=== PATIENT | male | born 1995 | race Caucasian/White ===

== ENCOUNTER 2022-08-09 15:00 | Emergency (ER) | payer OTHER, SELFPAY ==
--- NOTE | ~2022-08-09 | CT_ITS ---
EXAMINATION: CT HEAD WITHOUT CONTRAST CLINICAL INFORMATION: Dizziness COMPARISON: None available. TECHNIQUE: Contiguous axial imaging was performed from the skull base to vertex without intravenous administration of contrast. Additional 2-D coronal and sagittal reformatted images are generated on the CT workstation and uploaded to PACS. This CT examination was performed using dose optimization techniques as appropriate, variously including the following: *Automated exposure control *Adjustment of mA and/or kV according to patient size (this includes techniques or standardized protocols for targeted exams where dose is matched to indication/reason for exam; i.e. extremities or head) *Use of iterative reconstruction technique DLP: 615 mGy-cm FINDINGS: There is no intracranial hemorrhage, hematoma, or extra-axial fluid collection. There is mild asymmetry of the lateral ventricles. There is no hydrocephalus or subependymal resorption. The go-white matter differentiation appears well preserved . No edema or mass effect. No midline shift. There is no visible acute territorial infarct or mass lesion. The calvarium appears intact. There is no pneumocephalus or orbital emphysema. There is scattered mucosal thickening ethmoid air cells. No air-fluid levels sinuses, middle ears, or mastoids. CT/CT head/brain wo IV con IMPRESSION: No acute intracranial abnormality.
--- NOTE | 2022-08-09 15:20 | ED.GENADULT ---
HPI - General Adult General Chief complaint: Dizziness <MARIA R Butcher - Last Filed: 08/09/22 15:32> Stated complaint: Lightheaded/Dizziness/Blurred vision <MARIA R Butcher - Last Filed: 08/09/22 15:32> Time Seen by Provider: 08/09/22 20:33 <MARIA R Butcher - Last Filed: 08/09/22 15:32> Source: patient <Moira Avery MD - Last Filed: 08/09/22 22:03> Mode of arrival: ambulatory <Moira Avery MD - Last Filed: 08/09/22 22:03> History of Present Illness HPI narrative: 26-year-old male who presents with intense itching for the past month and a half that he is unable to relate to any food or shampoo/colognes/lotions/laundry detergent. This is not been associated with any difficulty breathing or difficulty swallowing and he denies any associated fever, chills, skin color changes, family history of similar issues. Patient denies any unexplained weight loss and also denies any bowel or bladder issues. Patient states he went to urgent care and underwent a steroid taper which actually contributed to headaches and dizziness and states that he has had some relief the itching but otherwise no success. Patient states he has had some improvement with lotion. <Moira Avery MD - Last Filed: 08/09/22 22:03> Related Data Allergies/adverse reactions: Allergies Allergy/AdvReac Type Severity Reaction Status Date / Time cefpodoxime [From Vantin] Allergy Unknown Unknown Verified 08/09/22 15:32 shellfish Allergy Severe Anaphylaxis Uncoded 08/09/22 15:21 codine Allergy Unknown unknown Uncoded 08/09/22 15:21 <MARIA R Butcher - Last Filed: 08/09/22 15:32> Review of Systems Review of Systems: Pertinent positives and negatives as stated in HPI <Moria Avery MD - Last Filed: 08/09/22 22:03> PMFSH Past Medical History Source: nursing notes reviewed <Moira Avery MD - Last Filed: 08/09/22 22:03> Social History Social History: Social History Advance Directives: No Advance Directives Information Provided: No <MARIA R Butcher - Last Filed: 08/09/22 15:32> Physical Exam ED Vital Signs: Vital Signs - 24 hr 08/09/22 15:30 Temperature 98.0 F Pulse Rate 55 Respiratory Rate 18 Blood Pressure 118/67 Pulse Oximetry 98 Oxygen Delivery Method Room Air BMI result Body Mass Index 22.7 <MARIA R Butcher - Last Filed: 08/09/22 15:32> Vital Signs - 24 hr 08/09/22 15:30 Temperature 98.0 F Pulse Rate 55 Respiratory Rate 18 Blood Pressure 118/67 Pulse Oximetry 98 Oxygen Delivery Method Room Air BMI result Body Mass Index 22.7 VITAL SIGNS: Reviewed. GENERAL: Well developed, well nourished, in no acute distress. HEAD: Normocephalic/atraumatic EYES: PERRLA, EOMI, no scleral icterus, no conjunctival pallor EARS: Ext canals without abnormality NOSE: Nares patent bilateral OROPHARYNX: no oral lesions noted, posterior pharynx clear and non-erythematous without noted tonsillar enlargement/erythema/exudates NECK: Supple, no adenopathy LUNGS: Normal breath sounds. No adventitious sounds or accessory muscle use. SpO2<98> CARDIOVASCULAR: Regular rate and rhythm without noted murmurs ABDOMEN: Soft, non-tender, non-distended with bowel sounds. MUSCULOSKELETAL: No tenderness, deformities, or effusions noted on gross inspection. EXTREMITIES: No cyanosis, clubbing or edema. SKIN: Inspection of the skin reveals no rashes, ulcerations, jaundice, pallor, or petechiae. NEUROLOGIC: Alert and oriented x 4. Strength and sensation to light touch were grossly intact x 4. <Moira Avery MD - Last Filed: 08/09/22 22:03> Course Course Course Narrative: This is an RME: Additional HPI, ROS, PE not included below will be deferred to primary provider. this is a 26-year-old male no significant medical history presenting to the emergency department complaints of fatigue, malaise, lightheadedness, rash. Patient tells me he has had a rash for few months, was treated with steroids, now is having some lightheadedness described as disequilibrium, along with fatigue and malaise. He was advised to come in by Urgent Care. Symptoms have been worsening over the past day. Denies chest pain, shortness of breath, headache, trauma, nausea, vomiting, Abdominal pain. Physical exam benign. NIH stroke scale 0. Plan labs, imaging, urine <MARIA R Butcher - Last Filed: 08/09/22 15:32> Medical Decision Making Medical Decision Making MDM Narrative: This is a 26-year-old male with history and clinical presentation after review of all investigations idiopathic pruritis with a component of eczema. LDH/CRP/LFTs are within normal limits. I do not appreciate any eosinophilia. Patient does have an appointment with a primary care provider on 08/23. On reviewing the differential there is a pseudo neutrophilia that is secondary to low lymphocytes but otherwise no derangements. He is discharged with recommendations to revert to all non dye/perfume lotions shampoos in body washes and also to initiate daily Claritin and reduce shower temperature and frequency to 2 to 3 times a week and use copious amounts of lotion. <Moira Avery MD - Last Filed: 08/09/22 22:03> Differential Diagnosis Please see the discussion above <Moira Avery MD - Last Filed: 08/09/22 22:03> Lab Data Please see the discussion above <Moira Avery MD - Last Filed: 08/09/22 22:03> Result Diagrams: 08/09/22 16:30 08/09/22 16:30 <MARIA R Butcher - Last Filed: 08/09/22 15:32> Labs: Lab Results 08/09/22 08/09/22 08/09/22 Range/Units 16:30 16:30 16:30 WBC 6.8 (4.8-10.8) X10*3/uL RBC 5.49 (4.60-5.80) X10*6/uL Hgb 16.1 (14.0-18.0) g/dl Hct 47.1 (42.0-52.0) % MCV 85.8 (80.0-98.0) fL MCH 29.3 (27.0-33.0) pg MCHC 34.2 (31.0-36.0) g/dl RDW 12.8 (11.0-16.0) % Plt Count 181 (160-400) X10*3/uL MPV 10.8 (9.4-12.4) fL Immature Gran % (Auto) 0.4 (0.0-0.4) % Neut % (Auto) 82.8 H (45-73) % Lymph % (Auto) 13.5 L (20-40) % [place] % (Auto) 2.8 (2-11) % Eos % (Auto) 0.1 (0-4) % Baso % (Auto) 0.4 (0-2) % Lymph # (Auto) 0.9 L (1.2-4.9) X10*3/uL [place] # (Auto) 0.2 (0.1-1.2) X10*3/uL Eos # (Auto) 0.0 (0.0-0.4) X10*3/uL Baso # (Auto) 0.0 (0.0-0.2) X10*3/uL Abs Immat Gran (auto) 0.03 (0.00-0.03) X10*3/uL Absolute Neuts (auto) 5.7 (2.0-8.3) x10*3/uL Absolute Nucleated RBC 0.000 (0.0-0.012) X10*3/uL Nucleated RBC % (auto) 0.0 (0.0-0.2) /100WBC Sodium 140 (135-145) mmol/L Potassium 4.4 (3.3-5.1) mmol/L Chloride 102 (96-108) mmol/L Carbon Dioxide 28 (22-29) mmol/L Anion Gap 14 (12-20) BUN 13 (9-16) mg/dL Creatinine 0.90 (0.5-1.4) mg/dL Estim Creat Clear Calc 114.6 Estimated GFR > 60 Random Glucose 106 (60-115) mg/dL Calcium 9.4 (8.4-10.2) mg/dL Magnesium 2.2 (1.6-2.6) mg/dL Total Bilirubin 1.0 (0.0-1.0) mg/dL AST 13 (5-37) U/L ALT 17 (0-40) U/L Alkaline Phosphatase 66 (39-117) U/L Lactate Dehydrogenase 139 (118-273) U/L Troponin I High Sens < 2.7 (<3.5-35.0) ng/L C-Reactive Protein < 0.04 (< or = 0.50) mg/dL Total Protein 7.1 (6.5-8.0) g/dL Albumin 4.3 (3.5-5.0) g/dL COVID-19 ([facility]) (Negative) COVID-19 Clin Com 08/09/22 Range/Units 16:30 WBC (4.8-10.8) X10*3/uL RBC (4.60-5.80) X10*6/uL Hgb (14.0-18.0) g/dl Hct (42.0-52.0) % MCV (80.0-98.0) fL MCH (27.0-33.0) pg MCHC (31.0-36.0) g/dl RDW (11.0-16.0) % Plt Count (160-400) X10*3/uL MPV (9.4-12.4) fL Immature Gran % (Auto) (0.0-0.4) % Neut % (Auto) (45-73) % Lymph % (Auto) (20-40) % [place] % (Auto) (2-11) % Eos % (Auto) (0-4) % Baso % (Auto) (0-2) % Lymph # (Auto) (1.2-4.9) X10*3/uL [place] # (Auto) (0.1-1.2) X10*3/uL Eos # (Auto) (0.0-0.4) X10*3/uL Baso # (Auto) (0.0-0.2) X10*3/uL Abs Immat Gran (auto) (0.00-0.03) X10*3/uL Absolute Neuts (auto) (2.0-8.3) x10*3/uL Absolute Nucleated RBC (0.0-0.012) X10*3/uL Nucleated RBC % (auto) (0.0-0.2) /100WBC Sodium (135-145) mmol/L Potassium (3.3-5.1) mmol/L Chloride (96-108) mmol/L Carbon Dioxide (22-29) mmol/L Anion Gap (12-20) BUN (9-16) mg/dL Creatinine (0.5-1.4) mg/dL Estim Creat Clear Calc Estimated GFR Random Glucose (60-115) mg/dL Calcium (8.4-10.2) mg/dL Magnesium (1.6-2.6) mg/dL Total Bilirubin (0.0-1.0) mg/dL AST (5-37) U/L ALT (0-40) U/L Alkaline Phosphatase (39-117) U/L Lactate Dehydrogenase (118-273) U/L Troponin I High Sens (<3.5-35.0) ng/L C-Reactive Protein (< or = 0.50) mg/dL Total Protein (6.5-8.0) g/dL Albumin (3.5-5.0) g/dL COVID-19 ([facility]) Negative (Negative) COVID-19 Clin Com See Note <MARIA R Butcher - Last Filed: 08/09/22 15:32> Lab Results 08/09/22 08/09/22 08/09/22 Range/Units 16:30 16:30 16:30 WBC 6.8 (4.8-10.8) X10*3/uL RBC 5.49 (4.60-5.80) X10*6/uL Hgb 16.1 (14.0-18.0) g/dl Hct 47.1 (42.0-52.0) % MCV 85.8 (80.0-98.0) fL MCH 29.3 (27.0-33.0) pg MCHC 34.2 (31.0-36.0) g/dl RDW 12.8 (11.0-16.0) % Plt Count 181 (160-400) X10*3/uL MPV 10.8 (9.4-12.4) fL Immature Gran % (Auto) 0.4 (0.0-0.4) % Neut % (Auto) 82.8 H (45-73) % Lymph % (Auto) 13.5 L (20-40) % [place] % (Auto) 2.8 (2-11) % Eos % (Auto) 0.1 (0-4) % Baso % (Auto) 0.4 (0-2) % Lymph # (Auto) 0.9 L (1.2-4.9) X10*3/uL [place] # (Auto) 0.2 (0.1-1.2) X10*3/uL Eos # (Auto) 0.0 (0.0-0.4) X10*3/uL Baso # (Auto) 0.0 (0.0-0.2) X10*3/uL Abs Immat Gran (auto) 0.03 (0.00-0.03) X10*3/uL Absolute Neuts (auto) 5.7 (2.0-8.3) x10*3/uL Absolute Nucleated RBC 0.000 (0.0-0.012) X10*3/uL Nucleated RBC % (auto) 0.0 (0.0-0.2) /100WBC Sodium 140 (135-145) mmol/L Potassium 4.4 (3.3-5.1) mmol/L Chloride 102 (96-108) mmol/L Carbon Dioxide 28 (22-29) mmol/L Anion Gap 14 (12-20) BUN 13 (9-16) mg/dL Creatinine 0.90 (0.5-1.4) mg/dL Estim Creat Clear Calc 114.6 Estimated GFR > 60 Random Glucose 106 (60-115) mg/dL Calcium 9.4 (8.4-10.2) mg/dL Magnesium 2.2 (1.6-2.6) mg/dL Total Bilirubin 1.0 (0.0-1.0) mg/dL AST 13 (5-37) U/L ALT 17 (0-40) U/L Alkaline Phosphatase 66 (39-117) U/L Lactate Dehydrogenase 139 (118-273) U/L Troponin I High Sens < 2.7 (<3.5-35.0) ng/L C-Reactive Protein < 0.04 (< or = 0.50) mg/dL Total Protein 7.1 (6.5-8.0) g/dL Albumin 4.3 (3.5-5.0) g/dL COVID-19 ([facility]) (Negative) COVID-19 Clin Com 08/09/22 Range/Units 16:30 WBC (4.8-10.8) X10*3/uL RBC (4.60-5.80) X10*6/uL Hgb (14.0-18.0) g/dl Hct (42.0-52.0) % MCV (80.0-98.0) fL MCH (27.0-33.0) pg MCHC (31.0-36.0) g/dl RDW (11.0-16.0) % Plt Count (160-400) X10*3/uL MPV (9.4-12.4) fL Immature Gran % (Auto) (0.0-0.4) % Neut % (Auto) (45-73) % Lymph % (Auto) (20-40) % [place] % (Auto) (2-11) % Eos % (Auto) (0-4) % Baso % (Auto) (0-2) % Lymph # (Auto) (1.2-4.9) X10*3/uL [place] # (Auto) (0.1-1.2) X10*3/uL Eos # (Auto) (0.0-0.4) X10*3/uL Baso # (Auto) (0.0-0.2) X10*3/uL Abs Immat Gran (auto) (0.00-0.03) X10*3/uL Absolute Neuts (auto) (2.0-8.3) x10*3/uL Absolute Nucleated RBC (0.0-0.012) X10*3/uL Nucleated RBC % (auto) (0.0-0.2) /100WBC Sodium (135-145) mmol/L Potassium (3.3-5.1) mmol/L Chloride (96-108) mmol/L Carbon Dioxide (22-29) mmol/L Anion Gap (12-20) BUN (9-16) mg/dL Creatinine (0.5-1.4) mg/dL Estim Creat Clear Calc Estimated GFR Random Glucose (60-115) mg/dL Calcium (8.4-10.2) mg/dL Magnesium (1.6-2.6) mg/dL Total Bilirubin (0.0-1.0) mg/dL AST (5-37) U/L ALT (0-40) U/L Alkaline Phosphatase (39-117) U/L Lactate Dehydrogenase (118-273) U/L Troponin I High Sens (<3.5-35.0) ng/L C-Reactive Protein (< or = 0.50) mg/dL Total Protein (6.5-8.0) g/dL Albumin (3.5-5.0) g/dL COVID-19 ([facility]) Negative (Negative) COVID-19 Clin Com See Note <Moira Avery MD - Last Filed: 08/09/22 22:03> Independent Interpretation I performed an independent interpretation of an: EKG <Moira Avery MD - Last Filed: 08/09/22 22:03> Interpretation: Sinus bradycardia, HR -46, no STEMI, WV/QRS/QTC are within normal limits. <Moira Avery MD - Last Filed: 08/09/22 22:03> Radiology Impression Radiologist Impression: My interpretation is in agreement with radiology's impression of the imaging studies. <Moira Avery MD - Last Filed: 08/09/22 22:03> Discharge Plan Discharge Clinical Impression: Chronic pruritic rash in adult <MARIA R Butcher - Last Filed: 08/09/22 15:32> Patient Disposition: Home, Self-Care <MARIA R Butcher - Last Filed: 08/09/22 15:32> Instructions: Itchy Skin (ED), Eczema (ED) <MARIA R Butcher - Last Filed: 08/09/22 15:32> Additional Instructions: 1. I recommend that you begin following precautions for eczema: Decrease the frequency showering throughout the week, decrease the temperature of your shower water, use copious amounts of lotion. 2. Initiate [id number]-[id number] Claritin daily. 3. Recommend converting all soaps, shampoos, laundry detergent to the no dye/no fragrance version 4. Keep the appointment that you have scheduled with your primary care provider. You would benefit from discussing the possibility of a referral to an regional training manager. Please do not hesitate to return to the emergency room should you develop any difficulty with breathing or swallowing or noticed any facial swelling. <MARIA R Butcher - Last Filed: 08/09/22 15:32>
--- NOTE | 2022-08-09 15:22 | ECG_ITS ---
Test Reason : WEAKNESS/DIZZINESS Blood Pressure : / mmHG Vent. Rate : 046 BPM Atrial Rate : 046 BPM P-R Int : 166 ms QRS Dur : 080 ms QT Int : 438 ms P-R-T Axes : 051 004 038 degrees QTc Int : 383 ms Sinus bradycardia with sinus arrhythmia Otherwise normal ECG No previous ECGs available Referred By: Danielle Sanchez Electronically Signed By:Escobar Tsai
[2022-08-09 15:30] VITALS: BP 118/67; PULSE 55; RESP 18; TEMP 36.7; O2SAT 98; BMI 22.7
[2022-08-09 16:35] LABS: MANUAL DIFF FLAG NO
[2022-08-09 16:37] LABS: Basophils Percent Auto 0.4 % (0-2); Eosinophils Percent Auto 0.1 % (0-4); Hematocrit 47.1 % (42.0-52.0); Hemoglobin 16.1 g/dl (14.0-18.0); Imm Gran Abs Auto 0.03 X10*3/uL (0.00-0.03); Imm Gran Pct Auto 0.4 % (0.0-0.4); Lymphocytes Absolute Auto 0.9 X10*3/uL (1.2-4.9); Lymphocytes Percent Auto 13.5 % (20-40); Mean Corpuscular HGB Conc 34.2 g/dl (31.0-36.0); Mean Corpuscular Hemoglobin 29.3 pg (27.0-33.0); Mean Corpuscular Volume 85.8 fL (80.0-98.0); Mean Platelet Volume 10.8 fL (9.4-12.4); Monocytes Absolute Auto 0.2 X10*3/uL (0.1-1.2); Monocytes Percent Auto 2.8 % (2-11); Neutrophils Absolute Auto 5.7 x10*3/uL (2.0-8.3); Neutrophils Percent Auto 82.8 % (45-73); Platelet Count 181 X10*3/uL (160-400); Red Blood Count 5.49 X10*6/uL (4.60-5.80); Red Cell Distribution Width 12.8 % (11.0-16.0); White Blood Count 6.8 X10*3/uL (4.8-10.8)
[2022-08-09 16:54] LABS: Alanine Aminotransferase 17 U/L (0-40); Albumin Level 4.3 g/dL (3.5-5.0); Alkaline Phosphatase 66 U/L (39-117); Anion Gap 14 (12-20); Aspartate Amino Transferase 13 U/L (5-37); Blood Urea Nitrogen 13 mg/dL (9-16); Calcium 9.4 mg/dL (8.4-10.2); Carbon Dioxide 28 mmol/L (22-29); Chloride 102 mmol/L (96-108); Creatinine Clr Calc Pharmacy 114.6; Estimated Glomerular Filt Rate > 60; Glucose Random 106 mg/dL (60-115); Magnesium 2.2 mg/dL (1.6-2.6); Potassium 4.4 mmol/L (3.3-5.1); Sodium 140 mmol/L (135-145); Total Protein 7.1 g/dL (6.5-8.0)
[2022-08-09 17:00] LABS: COVID-19 Test Negative (Negative); IDNOW Serial# BCCEAD1C
[2022-08-09 17:16] LABS: Troponin-I High Sensitivity < 2.7 ng/L (<3.5-35.0)
[2022-08-09 21:43] LABS: C Reactive Protein < 0.04 mg/dL (< or = 0.50); Lactate Dehydrogenase 139 U/L (118-273)
[2022-08-09 21:55] LABS: Erythrocyte Sedimentation Rate 2 MM/HR (0-15)
[2022-08-09 22:00] VITALS: BP 113/62; PULSE 47; RESP 16; TEMP 36.8; O2SAT 98
[2022-08-09 22:11] VITALS: BP 113/62; BP 122/72; PULSE 42; PULSE 50
[2022-08-09 22:13] VITALS: BP 115/78; PULSE 63
== END 2022-08-09 22:28 | disposition home or self-care (01) ==
PROVIDERS: Physician Assistant; Emergency Provider Student in an Organized Health Care Education/Training Program
DX: L29.9 Pruritus, unspecified (principal); R42 Dizziness and giddiness; Z20.822 Contact with and (suspected) exposure to COVID-19; F12.90 Cannabis use, unspecified, uncomplicated
CPT/HCPCS: 36415; 70450; 80053; 83615; 83735; 84484; 85025; 85652; 86140; 87635; 93005; 99284

== ENCOUNTER 2025-02-03 19:59 | Emergency (ER) | payer OTHER, SELFPAY ==
[2025-02-03 20:06] VITALS: BP 132/75; PULSE 69; RESP 18; TEMP 36.3; O2SAT 100; BMI 26.7
[2025-02-03 20:29] VITALS: PULSE 62; RESP 16; O2SAT 100
[2025-02-03 20:34] LABS: MANUAL DIFF FLAG NO
--- OUTSIDE RECORDS SUMMARY | 2025-02-03 20:43 | XMS_ITS | Encounter Summary ---
Author Organization [facility] Address [address] [place] [address] Phone Care Team Providers Care Research Administrator Name Role Phone Moira Del Castillo MD Primary Care Provider [phone] Encounter Details Date Type Department Care Team (Late st Contact Info) Description 04/20/2012 Nurse Only [address] [address] Social History Tobacco Use Types Packs/Day Years Used Date Smoking Tobacco: Never Comments:Never Smoker Sex and Gender Information Value Date Recorded Sex Assigned at Not on file Legal Sex Male 4:10 PM EST Gender Identity Not on file Sexual Orientation Not on file documented as of this encounter Nursing Notes * UNKNOWN, HISTORICAL - 04/20/2012 2:32 PM EST Sky Maddox. 1995 NURSE NOTE/VERBAL ORDERS Office/Outpatient Visit Visit Date: Apr 20, 2012 02:32 pm Provider: Kerri Thakkar RN (Labor Relations Director: Albert Gutierrez MD; Manager Store: Kerri Thakkar RN) Location: [facility]. ECTIVE: CC: He is here for the Flu Clinic. He enters with his father. HPI: No known chronic health conditions. Fever or illness is not present today. No trouble breathing or hives after eating eggs He has not had a reaction to the flu vaccine or other immunization. Flu vaccine VIS was given today.(interim 11/07/11) There were no questions or concerns voiced at today's visit. OBJECTIVE: Exams: GENERAL APPEARANCE: Alert, active, looks well, mood appropriate ASSESSMENT: V04.81 Flu Clinic ORDERS: Procedures Ordered: Influenza virus vaccine, split virus, preservative free, > 3 years, for intramuscular use (In-House) Immunization administration (includes percutaneous, intradermal, subcutaneous or intramuscular injec (In-House) PLAN: Flu Clinic Influenza vaccine > 3 yr (Preservative Free) given No contraindications noted for flu vaccines. Tolerated well, left office in good condition. Orders: Influenza virus vaccine, split virus, preservative free, > 3 years, for intramuscular use (In-House) Immunization administration (includes percutaneous, intradermal, subcutaneous or intramuscular injec (In-House) CHARGE CAPTURE: Primary Diagnosis: V04.81 Flu Clinic Orders: [id number] Influenza virus vaccine, split virus, preservative free, > 3 years, for intramuscular use (In-House) [id number] Immunization administration (includes percutaneous, intradermal, subcutaneous or intramuscular injec (In-House) documented in this encounter Plan of Treatment Not on file documented as of this encounter Visit Diagnoses Not on filedocumented in this encounter Care Teams Research Administrator Relationship Specialty Start Date End Date Moira Del Castillo MD [address] [place] [address] [address] [place] [address] PCP - General 06/27/16 05/03/18 documented as of this encounter
--- OUTSIDE RECORDS SUMMARY | 2025-02-03 20:43 | XMS_ITS | Encounter Summary ---
Author Organization [facility] Address [address] [place] [address] Phone Care Team Providers Care Human Resource Consultant Name Role Phone Moira Del Castillo MD Primary Care Provider [phone] Encounter Details Date Type Department Care Team (Late st Contact Info) Description 11/18/2011 Nurse Only [address] [address] Social History Tobacco Use Types Packs/Day Years Used Date Smoking Tobacco: Never Comments:Never Smoker Sex and Gender Information Value Date Recorded Sex Assigned at Not on file Legal Sex Male 4:10 PM EST Gender Identity Not on file Sexual Orientation Not on file documented as of this encounter Nursing Notes * UNKNOWN, HISTORICAL - 11/18/2011 3:19 PM EDT Sky Maddox. 1995 NURSE NOTE/VERBAL ORDERS Office/Outpatient Visit Visit Date: Nov 18, 2011 03:19 pm Provider: Mireya Bess RN (Tank Welder: Albert Gutierrez MD; Linux Systems Analyst: Mireya Bess RN) Location: [facility]. ECTIVE: CC: Patient enters with his mother He is here for immunization. HPI: Denies any problems with previous vaccinations. ASSESSMENT: V20.2 WCC: Immunizations only ORDERS: Procedures Ordered: Human Papilloma virus (HPV) vaccine, types 6, 11, 16, 18 (quadrivalent), 3 dose schedule, for intram (In-House) PLAN: WCC: Immunizations only IMMUNIZATIONS: Gardisil (HPV) was given at todays visit. Informed Consent: ( Given Verbal ) Patienttolerated injection(s) well. Left office in good condition. Orders: Human Papilloma virus (HPV) vaccine, types 6, 11, 16, 18 (quadrivalent), 3 dose schedule, for intram (In-House) Patient Recommendations: For WCC: Immunizations only: Immunizations for Todays isit; ^ HPV (Given) CHARGE CAPTURE: Primary Diagnosis: V20.2 WCC: Immunizations only Orders: [id number] Human Papilloma virus (HPV) vaccine, types 6, 11, 16, 18 (quadrivalent), 3 dose schedule, forintram (In-House) documented in this encounter Plan of Treatment Not on file documented as of this encounter Visit Diagnoses Not on filedocumented in this encounter Care Teams Human Resource Consultant Relationship Specialty Start Date End Date Moira Del Castillo MD [address] [place] [address] PCP - General 06/27/16 05/03/18 documented as of this encounter
--- OUTSIDE RECORDS SUMMARY | 2025-02-03 20:43 | XMS_ITS | Encounter Summary ---
Author Organization [facility] Address [address] [place] [address] Phone Care Team Providers Care Manager Mountain Name Role Phone Moira Del Castillo MD Primary Care Provider Encounter Details Date Type Department Care Team (Late st Contact Info) Description 03/18/2010 Nurse Only [address] [address] Social History Tobacco Use Types Packs/Day Years Used Date Smoking Tobacco: Never Assessed Sex and Gender Information Value Date Recorded Sex Assigned at Not on file Legal Sex Male 4:10 PM EST Gender Identity Not on file Sexual Orientation Not on file documented as of this encounter Nursing Notes * UNKNOWN, HISTORICAL - 03/18/2010 1:44 PM EST Sky Maddox. 1995 NURSE NOTE/VERBAL ORDERS Office/Outpatient Visit Visit Date: Mar 18, 2010 01:44 pm Provider: Betsy Cabrera RN (Combat Systems Engineer: Gloria Verduzco MD; Accessioner: Betsy Cabrera RN) Location: [facility]. ECTIVE: CC: He is here for the Flu Clinic. HPI: No known chronic health conditions. Fever or illness is not present today. No trouble breathing or hives after eating eggs He has not had a reaction to the flu vaccine or other immunization. Flu vaccine VIS was given today.(interim 12/15/09) There were no questions or concerns voiced at today's visit. OBJECTIVE: Exams: GENERAL APPEARANCE: Alert, active, looks well, mood appropriate ASSESSMENT: V04.81 Flu Clinic ORDERS: Procedures Ordered: Influenza virus vaccine, split virus, preservative free, > 3 years, for intramuscular use Immunization administration (includes percutaneous, intradermal, subcutaneous or intramuscular injec PLAN: Flu Clinic Influenza vaccine > 3 yr (Preservative Free) given No contraindications noted for flu vaccines. Tolerated well, left office in good condition. Orders: Influenza virus vaccine, split virus, preservative free, > 3 years, for intramuscular use Immunization administration (includes percutaneous, intradermal, subcutaneous or intramuscular injec CHARGE CAPTURE: Primary Diagnosis: V04.81 Flu Clinic Orders: [id number] Influenza virus vaccine, split virus, preservative free, > 3 years, for intramuscular use [id number] Immunization administration (includes percutaneous, intradermal, subcutaneous or intramuscular injec documented in this encounter Plan of Treatment Not on file documented as of this encounter Visit Diagnoses Not on filedocumented in this encounter Care Teams Manager [place] Relationship Specialty Start Date End Date Moira Del Castillo MD [address] [place] [address] [address] [place] [address] PCP - General 06/27/16 05/03/18 documented as of this encounter
--- OUTSIDE RECORDS SUMMARY | 2025-02-03 20:43 | XMS_ITS | Clinical Summary ---
Author Organization [facility] Address [address] [place] [id number] Phone Care Team Providers Care Tobacco Grower Name Role Phone Unavailable Primary Care Provider Unavailabl e Medications EPINEPHrine (ADRENACLICK) 0.3 MG/0.3ML injection syringeIndicati ons:Allergy to seafood Inject 0.3 mL (0.3 mg total) under the skin Once PRN for anaphylaxis for up to 1 dose. 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/2016 Immunizations Immunization Administration Dates Next Due DTP 07/11/1995,05/03/1995,02/21/1995 DTaP 5 09/28/1999,06/10/1996 HPV, Quadrivalent 10/09/2012,11/18/2011,08/16/19 12 Hep B, ped/adol 07/11/1995,02/21/1995,1994 Hib (HbOC) 06/10/1996, 6,05/03/1995,02/21 IPV 09/28/1999 Influenza Split 04/17/2008 Influenza, injectable, quadr ivalent, preservative free 03/09/2016 Influenza, injectable, triva lent, preservative free 04/19/2013,04/20/2012,04/11/2011,03/18,02/05/2009 MMR 09/28/1999,03/28/1996 Meningococcal Conj (Menactra) MCV4P 08/16/2011,0 08/28/2006 OPV 06/10/1996, 6,05/03/1995,02/21 Td (adult) (Tenivac), 5 Lf t etanus toxoid, PF, adsorbed 03/09/2016 Tdap 08/28/2006 Varicella 08/16/2011,03/28/1996 Social History Tobacco Use Types Packs/Day Years Used Date Smoking Tobacco: Never Comments:Never Smoker Sex and Gender Information Value Date Recorded Sex Assigned at Not on file Legal Sex Male 4:10 PM EST Gender Identity Not on file Sexual Orientation Not on file Last Filed Vital Signs Vital Sign Reading Time Taken Comments Blood Pressure 118/80 02/17/2016 11:42 AM EDT Pulse - - Temperature 36.9 C (98.4 F) 06/03/2015 2:28 PM EST Respiratory Rate - - Oxygen Saturation - - Inhaled Oxygen Concentration - - Weight 65.3 kg (144 lb) 02/17/2016 11:42 AM EDT Height 170.2 cm (5' 7 ) 02/17/2016 11:42 AM EDT Body Mass Index 22.55 02/17/2016 11:42 AM EDT Plan of Treatment Health Maintenance Due Date Last Done Comments Influenza Vaccines (#1) 2024 03/09/20 16, 04/19/2013, 04/20/2012, Additional history exists COVID-19 Vaccine ( season) 2025 DTaP,Tdap,and Td Vaccines (8 - Td or Tdap) 03/09/2026 03/09/2016, 08/28/2006, 09/28/1999, Additional history exists Hepatitis B Vaccines Completed 07/11/1995, 02/21/1995, 1994 HIB Vaccines Completed 06/10/1996, 09/1995, 05/03/1995, Additional history exists IPV Vaccines Completed 09/28/1999, 07/1996, 07/11/1995, Additional history exists MMR Vaccines Completed 09/28/1999, 03/28/1996 Meningococcal Vaccine Completed 08/16/2011, 007 Varicella Vaccines Completed 08/16/2011, 03/28/1996 HPV Vaccines Completed 10/09/2012, 11/05, 08/16/2011 Hepatitis A Vaccines Aged Out No long er eligible based on patient's age to complete this topic Men B Vaccine Aged Out No longer elig ible based on patient's age to complete this topic Pneumococcal Vaccine Aged Out No long er eligible based on patient's age to complete this topic
--- OUTSIDE RECORDS SUMMARY | 2025-02-03 20:43 | XMS_ITS | Clinical Summary ---
Author Organization [facility] Address [address] [place] [id number] Phone Care Team Providers Care Lance Crewmember Name Role Phone Unavailable Primary Care Provider Unavailabl e Allergies Active Allergy Reactions Criticality Noted Date Comments Codeine 01/09/2019 unknown Shellfish Containing Products Anaphylaxis High 01/09 Medications EPINEPHrine 0.3 mg/0.3 mL auto-injector Inject 0.3 mg under the skin as needed. 09/20/2016 Active Active Problems Problem Noted Date Diagnosed Date Near syncope 01/09/2019 Assessment & Plan (01/09/2019 11:40 AM EDT): Most likely the patient's transient vision loss was due to hypotension. I suspect it was a vasovagal reaction due to multiple factors. 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 The fact that was early in the morning and he was feeling nauseated and had recently been kneeling on the ground think he had to vomit, I suspect his blood pressure got low when he stood up because that transient loss of vision. See no other evidence of any significant pathology. If his EKG is normal I do not think he needs any further evaluation unless his symptoms recur. Sebaceous cyst of ear 01/09/2019 Assessment & Plan (01/09/2019 11:42 AM EDT): The cyst is not infected and is not really bothering the patient. I offered him referral to ENT for drainage but he has deferred. I told him it may spontaneously drain at some point but he should avoid trying to drained on his own. He will let me know if he would like a referral. Immunizations Immunization Administration Dates Next Due DTP 07/11/1995,05/03/1995,02/21/1995 Dtap, 5 Pertussis Antigens 09/28/1999,06/10/1996 HPV,quadrivalent 10/09/2012,11/18/2011, 2 Hepatitis B 07/11/1995,02/21/1995,1994 Hib,HbOC 06/10/1996, 6,05/03/1995,02/21 INFLUENZA, SPLIT VIRUS, TRIVALENT PF ,04/11/2011,03/18/2010,02/05 IPV 09/28/1999 Influenza Quadrivalent MDCK Preservative Free IM 04/24/2017 Influenza Quadrivalent Prese rvative Free IM 02/22/2018,03/09/2016 Influenza Split (Incl. Purif ied Surface Antigen) 04/17/2008 Influenza Trivalent MDCK Pre servative Free IM 04/19/2013 MMR 09/28/1999,03/28/1996 Meningococcal MCV4P 08/16/2011,08/28/2006 Polio - OPV 06/10/1996, 6,05/03/1995,02/21 Td (adult) 5 Lf Tetanus Toxo id, PF, Adsorbed 03/09/2016 Tdap 08/28/2006 Varicella 08/16/2011,03/28/1996 Family History Medical History Relation Comments Bipolar disorder Brother 1 Depression Brother 1 Colon cancer Father Glaucoma Father Hypertension Father Relation Status Comments Brother 1 Alive Brother 2 Alive Brother 3 Alive Father Alive Maternal Grandfather Alive Maternal Grandmother Alive Mother Alive Paternal Grandfather Paternal Grandmother Alive Social History Tobacco Use Types Packs/Day Years Used Date Smoking Tobacco: Former Smokeless Tobacco: Never Alcohol Use Standard Drinks/Week Comments Yes 0 (1 standard drink = 0.6 oz pur e alcohol) once a month Education Answer Date Recorded Are you interested in more education? Not on rica e 09/02/2022 Are you concerned about learning? Not on file 09/02/2022 No 09/02/2022 No 09/02/2022 Digital Access Answer Date Recorded No 09/30/2022 No 09/30/2022 No 09/30/2022 Reliable internet access at home? Not on file 09/30/2022 Device with a working camera? 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 Not on file Not on rica e Not on file Last Filed Vital Signs Vital Sign Reading Time Taken Comments Blood Pressure 100/62 01/09/2019 10:49 AM EDT Pulse 51 01/09/2019 10:49 AM EDT Temperature 36.5 C (97.7 F) 01/09/2019 10:49 AM EDT Respiratory Rate - - Oxygen Saturation 98% 01/09/2019 10:49 AM EDT Inhaled Oxygen Concentration - - Weight 68 kg (150 lb) 01/09/2019 10:49 AM EDT Height 171.6 cm (5' 7.56 ) 01/09/2019 10:49 AM E DT Body Mass Index 23.11 01/09/2019 10:49 AM EDT Plan of Treatment Health Maintenance Due Date Last Done Comments SMOKING Hx and SMOKELESS TOBACCO SCREENING 12/21/2007 HEPATITIS C SCREENING 2012 HIV ONE-TIME SCREENING (18-65 YEARS) 2012 DEPRESSION SCREENING 01/10/2020 01/09/2019 INFLUENZA VACCINE (#1) 2024 , 03/01/2019, 02/22/2018, Additional history exists COVID-19 VACCINE ( season) 2025 06/09/2020, 05/12/2020 Adult Td,Tdap Booster 03/09/2026 03/09/2016, 007 HIB VACCINES Completed 06/10/1996, 09/1995, 05/03/1995, Additional history exists MENINGOCOCCAL VACCINES (ACWY) Completed 08/16/2011, 08/28/2006 HEPATITIS A VACCINES Aged Out No long er eligible based on patient's age to complete this topic MENINGOCOCCAL VACCINES (B) Aged Out N o longer eligible based on patient's age to complete this topic PNEUMOCOCCAL VACCINES (0-49 years) Aged Out No longer eligible based on patient's age to complete this topic Medical Devices Not on file Insurance [address] [place], [place] [id number] [place] [address] [place] [place] [id number] [place] [address] HMO [facility] HMO Additional Source Comments The information contained in this document represents components of the legal health record. It is not the complete legal health record.[facility]
--- OUTSIDE RECORDS SUMMARY | 2025-02-03 20:43 | XMS_ITS | Encounter Summary ---
Author Organization [facility] Address [address] [place] [address] Phone Care Team Providers Care Channel Machine Operator Name Role Phone Moira Del Castillo MD Primary Care Provider [phone] Encounter Details Date Type Department Care Team (Late st Contact Info) Description 04/11/2011 Nurse Only [address] [address] Social History Tobacco Use Types Packs/Day Years Used Date Smoking Tobacco: Never Comments:Never Smoker Sex and Gender Information Value Date Recorded Sex Assigned at Not on file Legal Sex Male 4:10 PM EST Gender Identity Not on file Sexual Orientation Not on file documented as of this encounter Nursing Notes * UNKNOWN, HISTORICAL - 04/11/2011 3:41 PM EST Sky Maddox. 1995 NURSE NOTE/VERBAL ORDERS Office/Outpatient Visit Visit Date: Apr 11, 2011 03:41 pm Provider: Betsy Cabrera RN (Supply Requirements Officer: Modesta Lees MD; Petrology Teacher: Betsy Cabrera RN) Location: [facility]. ECTIVE: CC: He is here for the Flu Clinic. Presents with 18yo sib. Mom called to consent for vaccine and spoke with this nurse. HPI: No known chronic health conditions. Fever or illness is not present today. No trouble breathing or hives after eating eggs He has not had a reaction to the flu vaccine or other immunization. Flu vaccine VIS was given today.(interim 11/30/10) There were no questions or concerns voiced at today's visit. OBJECTIVE: Exams: GENERAL APPEARANCE: Alert, active, looks well, mood appropriate RESPIRATORY: Normal respiratory rate and pattern with no distress ASSESSMENT: V04.81 Flu Clinic ORDERS: Procedures Ordered: [...] CAPTURE: Primary Diagnosis: V04.81 Flu Clinic Orders: [id number] Influenza virus vaccine, split virus, preservative free, > 3 years, for intramuscular use [id number] Immunization administration (includes percutaneous, intradermal, subcutaneous or intramuscular injec documented in this encounter Plan of Treatment Not on file documented as of this encounter Visit Diagnoses Not on filedocumented in this encounter Care Teams Channel Machine Operator Relationship Specialty Start Date End Date Moira Del Castillo MD [address] [place] [address] [address] [place] [address] PCP - General 06/27/16 05/03/18 documented as of this encounter
[2025-02-03 20:45] VITALS: BP 114/72; PULSE 68
[2025-02-03 20:50] LABS: Hematocrit 48.4 % (42.0-52.0); Hemoglobin 16.8 g/dl (14.0-18.0); Imm Gran Abs Auto 0.04 X10*3/uL (0.00-0.03); Imm Gran Pct Auto 0.3 % (0.0-0.4); Lymphocytes Absolute Auto 1.9 X10*3/uL (1.2-4.9); Mean Corpuscular HGB Conc 34.7 g/dl (31.0-36.0); Mean Corpuscular Hemoglobin 29.5 pg (27.0-33.0); Mean Corpuscular Volume 85.1 fL (80.0-98.0); NRBC Abs Auto 0.000 X10*3/uL (0.0-0.012); NRBC Pct Auto 0.0 /100WBC (0.0-0.2); Platelet Count 226 X10*3/uL (160-400); Red Blood Count 5.69 X10*6/uL (4.60-5.80); White Blood Count 13.8 X10*3/uL (4.8-10.8)
--- NOTE | 2025-02-03 20:50 | ED.ALLEREA ---
HPI - Allergic Reaction General Chief complaint: Allergic Reaction Stated complaint: allergic reaction, wasp/bee sting Time Seen by Provider: 02/03/25 20:37 Source: patient Mode of arrival: ambulatory Limitations: no limitations History of Present Illness ED Provider: MARCELINO MORGAN PA-C HPI narrative: 29 year old male presents to the ED today for concerns of an allergic reaction. Reports being stung by a wasp on his left ankle around 1800 today. Reports pain immediately to the area however felt well enough to go on a run. During his run, he noticed that he was breaking out into a rash to his lower legs. Rash began spreading to his torso and now upper extremities. Report throat feels scratchy . Denies known allergy to bee/wasp stings. Denies difficulty breathing, chest pain, palpitations, N/V. Related Data Previous Rx's ?Medication ?Instructions ?Recorded diphenhydramine HCl 25 mg tablet 50 mg (2 x 25 mg) PO Q8H PRN 02/03/25 (Benadryl Allergy) itching 5 days #20 tabs epinephrine 0.3 mg/0.3 mL 0.3 mg (0.3 mL) IM Q10M PRN 02/03/25 injection, auto-injector anaphylaxis #2 ea prednisone 20 mg tablet 40 mg (2 x 20 mg) PO DAILY 3 days 02/03/25 #6 tabs Allergies Allergy/AdvReac Type Severity Reaction Status Date / Time bee pollen (bee stings) Allergy Severe Rash Verified 02/03/25 20:08 cefpodoxime (From Vantin) Allergy Unknown Unknown Verified 02/03/25 20:08 shellfish Allergy Severe Anaphylaxis Uncoded 08/09/22 15:21 codine Allergy Unknown unknown Uncoded 08/09/22 15:21 Review of Systems Review of Systems: Yes all other systems are reviewed and are negative PMFSH Past Medical History Attestation statement: The following information was validated with the patient. Source: old records reviewed and nursing notes reviewed Social History Social History Alcohol intake: never Smoked in Last 30 Days: No Use of substances other than those prescribed or required for medical reasons: No Substance Use Type: Marijuana Advance Directives: No Advance Directives Information Provided: No Do you have a plan to hurt others: No Plan Physical Exam ED Vital Signs: Vital Signs - 24 hr 02/03/25 20:06 02/03/25 20:29 02/03/25 20:45 Temperature 97.4 F Pulse Rate 69 62 68 Respiratory Rate 18 16 Blood Pressure 132/75 114/72 Pulse Oximetry 100 100 Oxygen Delivery Method Room Air Room Air 02/03/25 22:22 02/03/25 23:20 Temperature 97.4 F Pulse Rate 63 63 Respiratory Rate 12 12 Blood Pressure 113/66 113/66 Pulse Oximetry 99 99 Oxygen Delivery Method Room Air Room Air BMI result Body Mass Index 26.7 Vital signs stable, satting 100% on room air General: Well appearing, in no acute distress. Skin: +diffuse erythematous maculopapular rash noted to extremities, torso, no sloughing, non dermatomal, no target lesions, spares palms/soles/mucous membrane/webbed spaces Head: Normocephalic, atraumatic. EENT: Hearing is intact b/l. Conjunctiva clear. Sclera is anicteric. PERRLA. EOM intact. Moist mucous membranes.? Neck: Supple without LAD Cardiac: Chest wall symmetric. RRR Lungs: airway patent. Normal respiratory effort without accessory muscle use. CTA bilaterally. Abdomen: Soft, non-tender, non-distended. No rebound tenderness or guarding. Positive BS x4. Ext: +see above. Neuro: AOx3. Normal speech. Ambulating with steady gait Course Course Course Narrative: CBC showing leukocytosis to 13.8, no left shift. No anemia. H&H stable. Chemistry without acute electrolyte abnormality requiring intervention. No ALVINO. Liver function WNL. > patient treated with epi, Benadryl and Solu-Medrol with improvement in symptoms. No longer feels like his throat is scratchy. Rash improving. He has been monitored for over 2 hours at this point. He feels well. He is hemodynamically stable. At this time, I feel he is stable for discharge home. Will send Benadryl, prednisone and EpiPen. educated on use. Discussed worrisome signs and symptoms and when to return to the ED. All questions answered at this time. Medications Administered Discontinued Medications Generic Name Dose Route Start Last Admin Trade Name Freq PRN Reason Stop Dose Admin Diphenhydramine HCl 25 mg 02/03/25 20:38 02/03/25 20:46 Diphenhydramine Hcl 50 Mg/Ml Vial IVPUSH 02/03/25 20:39 25 mg ONCE ONE Administration Epinephrine 0.3 mg 02/03/25 20:38 02/03/25 20:45 Epinephrine 1 Mg/Ml Vial IM 02/03/25 20:39 0.3 mg STAT STA Administration Methylprednisolone Sodium Succinate 125 mg 02/03/25 20:38 02/03/25 20:46 Methylprednisolone Sod Succ 125 Mg/2 Ml Vial IVPUSH 02/03/25 20:39 125 mg ONCE ONE Administration Medical Decision Making Medical Decision Making [facility] Narrative: 29 year old male presents to the ED today for concerns of an allergic reaction. Differential diagnosis includes allergic reaction, anaphylaxis. I also considered contact/atopic/eczematous dermatitis, psoriasis. History and exam findings not consistent with lyme/tick bourne illness, herpes zoster/simplex, scabies, HFM,? dangerous etiologies of rash such as SJS/TEN, or secondary dangerous causes such as petechial rashes from thrombocytopenia or rickettsial infections.? Plan for screening labs, IV meds and serial monitoring. Differential Diagnosis Differential Diagnoses: The differential diagnosis associated with the presentation includes as above. Admission/Observation not indicated Lab Data [facility] Lab Attestation statement: I reviewed the patient's lab results. as above. 02/03/25 20:17 02/03/25 20:17 Labs: Lab Results 02/03/25 Range/Units 20:17 WBC 13.8 H (4.8-10.8) X10*3/uL RBC 5.69 (4.60-5.80) X10*6/uL Hgb 16.8 (14.0-18.0) g/dl Hct 48.4 (42.0-52.0) % MCV 85.1 (80.0-98.0) fL MCH 29.5 (27.0-33.0) pg MCHC 34.7 (31.0-36.0) g/dl RDW 12.6 (11.0-16.0) % Plt Count 226 (160-400) X10*3/uL MPV 11.3 (9.4-12.4) fL Immature Gran % (Auto) 0.3 (0.0-0.4) % Neut % (Auto) 77.8 H (45-73) % Lymph % (Auto) 13.8 L (20-40) % [place] % (Auto) 6.0 (2-11) % Eos % (Auto) 1.7 (0-4) % Baso % (Auto) 0.4 (0-2) % Lymph # (Auto) 1.9 (1.2-4.9) X10*3/uL [place] # (Auto) 0.8 (0.1-1.2) X10*3/uL Eos # (Auto) 0.2 (0.0-0.4) X10*3/uL Baso # (Auto) 0.1 (0.0-0.2) X10*3/uL Abs Immat Gran (auto) 0.04 H (0.00-0.03) X10*3/uL Absolute Neuts (auto) 10.7 H (2.0-8.3) x10*3/uL Absolute Nucleated RBC 0.000 (0.0-0.012) X10*3/uL Nucleated RBC % (auto) 0.0 (0.0-0.2) /100WBC Sodium 140 (135-145) mmol/L Potassium 4.4 (3.3-5.1) mmol/L Chloride 107 (96-108) mmol/L Carbon Dioxide 23 (22-29) mmol/L Anion Gap 14 (12-20) BUN 18 H (9-16) mg/dL Creatinine 0.88 (0.5-1.4) mg/dL Estim Creat Clear Calc 114.7 Estimated GFR > 60 Random Glucose 104 (60-115) mg/dL Calcium 9.2 (8.4-10.2) mg/dL Total Bilirubin 0.9 (0.0-1.0) mg/dL AST 26 (5-37) U/L ALT 25 (0-40) U/L Alkaline Phosphatase 80 (39-117) U/L Total Protein 8.0 (6.5-8.0) g/dL Albumin 4.9 (3.5-5.0) g/dL Prescription Management I considered prescription management with: Other (Prednisone, Benadryl) Social Determinants Patient?s care significantly limited by Social Determinants of Health including: Other Social Determinant of Health Critical Care Time Critical Care Time Critical Care Time: Yes Total Critical Care Time: 34 Attestation: Critical care time in the amount of 34 minutes has been provided to the patient in terms of direct patient care, frequent reevaluation on IV epi, review and interpretation of medical data and results, and management of potentially life-threatening conditions. This is all outside of any medical procedures. Discharge Plan Discharge Clinical Impression: Allergic reaction Patient Disposition: Home, Self-Care Instructions: General Allergic Reaction (ED) Additional Instructions: You were evaluated in the ED today following allergic reaction to a wasp sting. You were reaction was concerning for anaphylaxis. You now have an allergy to bee/wasp stings. You were treated with IV medications in ED today with improvement in symptoms. You have been observed for over 2 hours. I am sending a 3 day course of steroids (prednisone) to your pharmacy. Take this as prescribed, starting tomorrow. Continue taking Benadryl every 8 hours as needed for itching. An epi pen has been sent to your pharmacy, only to be used in severe emergencies such as inability to breath, trouble speaking, shortness of breath or any signs of anaphylaxis as discussed. If an episode pen is used, it it crucial that you come to the ED to be evaluated after use as you may have a rebound reaction. How to use an epi pen: Place the orange tip against the middle of the outer thigh. Push the auto injector firmly into the thigh until it clicks Hold firmly in place for 3 seconds - count slowly. Please follow up with literacy specialist. Your have been provided with a referral. Call them to make an appointment, they will not call you. Prescriptions: New epinephrine 0.3 mg/0.3 mL auto-injector 0.3 mg IM Q10M PRN (Reason: anaphylaxis) Qty: 2 0RF Rx Instructions: for 2 doses prednisone 20 mg tablet 40 mg PO DAILY 3 Days Qty: 6 0RF diphenhydramine HCl [Benadryl Allergy] 25 mg tablet 50 mg PO Q8H PRN (Reason: itching) 5 Days Qty: 20 0RF Referrals: John Lewis MD [Physician, Allergy & Immunology] Physician,None [Primary Care Provider, Medical] Interventions: ED Discharge Assessment Last Done: 02/03/25 23:20 Discharge Date/Time: 02/03/25 23:21 Print Language: Swedish
[2025-02-03 20:52] LABS: Alanine Aminotransferase 25 U/L (0-40); Albumin Level 4.9 g/dL (3.5-5.0); Alkaline Phosphatase 80 U/L (39-117); Anion Gap 14 (12-20); Aspartate Amino Transferase 26 U/L (5-37); Blood Urea Nitrogen 18 mg/dL (9-16); Calcium 9.2 mg/dL (8.4-10.2); Carbon Dioxide 23 mmol/L (22-29); Chloride 107 mmol/L (96-108); Creatinine Clr Calc Pharmacy 114.7; Estimated Glomerular Filt Rate > 60; Potassium 4.4 mmol/L (3.3-5.1); Sodium 140 mmol/L (135-145); Total Protein 8.0 g/dL (6.5-8.0)
[2025-02-03 22:22] VITALS: BP 113/66; PULSE 63; RESP 12; O2SAT 99
[2025-02-03 23:20] VITALS: BP 113/66; PULSE 63; RESP 12; TEMP 36.3; O2SAT 99
== END 2025-02-03 23:21 | disposition home or self-care (01) ==
PROVIDERS: Student in an Organized Health Care Education/Training Program; Emergency Provider Emergency Medicine
DX: T63.441A Toxic effect of venom of bees, accidental (unintentional), initial encounter (principal); L23.89 Allergic contact dermatitis due to other agents; Y92.9 Unspecified place or not applicable
CPT/HCPCS: 36415; 80053; 85025; 99284; J0165; J1200; J2919